=== PATIENT | male | born 1940 | race Caucasian/White ===

== ENCOUNTER → 2020-02-25 | Outpatient (CLI) | payer MEDICARE, OTHER ==
[~2020-02-25] MED LIST: AMLO1TAB24 PO; ATOR40TA75 PO; CHLO25TA PO; ENAL20TA11 PO; FINA5TAB2 PO; MULTCAP PO
== END ==
LOC: M LABSMTC 08:50
PROVIDERS: ATTEND Anesthesiology
DX: Z01.812 Encounter for preprocedural laboratory examination (principal); Z20.828 Contact with and (suspected) exposure to other viral communicable diseases
CPT/HCPCS: C9803; U0003

== ENCOUNTER 2020-03-01 09:45 | Day surgery (SDC) | payer MEDICARE, OTHER ==
[~2020-03-01] VITALS: Ht 180.3 cm; Wt 78.5 kg
[~2020-03-01 09:45] MED LIST changes: +LR 1,000 ML IV ONE; +ceFAZolin SOD 2 GM in IV 1 EA IV ONE
[2020-03-01] MEDS ORDERED: dexameTHASONE 4 MG/ML 1ML VIAL (J1100 PER 1MG) As Ordered ONE (12:10)
[2020-03-01] MEDS ORDERED: LIDOCAINE 2% MDV 20ML VIAL As Ordered ONE (12:10)
[2020-03-01] MEDS ORDERED: propofoL 500 MG/50 ML VIAL As Ordered ONE (12:10)
[2020-03-01] MEDS ORDERED: BUPIVACAINE HCL 0.5% 10ML VIAL As Ordered ONE (12:10)
[2020-03-01] MEDS ORDERED: BACITRACIN PWD 50,000 UNITS VIAL As Ordered ONE (12:11)
[2020-03-01] MEDS ORDERED: NEOSPORIN GU IRRIG 20 ML VIAL As Ordered ONE (12:11)
[2020-03-01] MEDS ORDERED: LIDOCAINE 2% 100MG/5ML SDV (FOR ANES.) As Ordered ONE (12:12)
[2020-03-01] MEDS ORDERED: fentaNYL 100 MCG/2 ML INJECTION (J3010) As Ordered ONE (13:42)
[2020-03-01] MEDS ORDERED: propofoL 200 MG/20 ML VIAL As Ordered ONE ×2 (13:57→14:31)
[2020-03-01 16:35] VITALS: BP 157/75
--- NOTE | 2020-03-07 11:06 | REP ---
RIGHT FOOT SERIES: PORTABLE EXAM 3-VIEWS HISTORY: Postop. FINDINGS: Three views of the right foot demonstrate pins transfixing the interphalangeal (IP) joints of the second, third, and fourth digits with distal osteotomies to the proximal phalanges of the second, third, fourth, and fifth digits. Bunion repair is seen with a single pin in place in the distal end of the first metatarsal. Mild hallux valgus. There is Achilles and plantar calcaneal spurring noted as well. MTDD
--- NOTE | 2020-03-08 13:03 | RO ---
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 SURGEON: Chaim Sun DPM [employer] MANAGER: None. ANESTHESIA: Local MAC. IRRIGATION: Dilute Bacitracin, Neomycin and Polymyxin B solution. HARDWARE UTILIZED: Arthrex Headless 3.0 x 28 mm cannulated compression screw and external wires 0.045 x3. HEMOSTASIS: Ankle pneumatic tourniquet at 225 mmHg for 100 minutes. DESCRIPTION OF OPERATON: On 03/01/2020 this 79-year-old white male was taken from his hospital room to the operating room and placed on the operating table in the supine position. Following induction of IV sedation and local regional anesthesia right lower extremity was prepped and draped in usual aseptic manner. Attention was directed to the patients right foot. There was noted to be a severe hallux valgus deformity of the right foot. At this time a 6 cm incision was placed over the 1st metatarsophalangeal joint. The incision was deepened through subcutaneous tissues and all crossing venous tributaries were identified, underscored, clamped, cut, ligated, and electrocoagulated as necessary. Linear capsulotomy was performed in the same plane of original skin incision. Capsular and periosteal structures were then dissected free in one continuous layer dorsal, medial and lateral, thus creating a capsular and periosteal type envelope. This brought into view the hypertrophied medial eminence of the 1st metatarsal which was osteotomized from distal to proximal [id number] exiting medial to the sesamoidal groove. Attention was then directed to the 1st intermetatarsal space where dissection was carried down to the level of the fibular sesamoid which was then released including the sesamophalangeal and metatarsal sesamoidal ligament and the suspensory ligament. However, the sesamoid would not slide under the head of the 1st metatarsal, therefore the sesamoid was removed. The wound was flushed with copious amounts of Bacitracin, Neomycin and Polymyxin based solution. Attention was directed to the medial surface of the 1st metatarsal where V-shaped osteectomy was performed with long plantar and short dorsal angle. By creation of this osteotomy capital fragment was transposed approximately 40% of shaft of 1st metatarsal and fixated with 3.0 x 28 mm compression screw. The osteotomy was noted to be stable in all three cardinal planes. The screw did not penetrate the inferior cartilage under direct visualization. Redundant cortical spike was then osteotomized from dorsal to plantar [id number]. The wound was flushed with copious amounts of Bacitracin, Neomycin and Polymyxin B solution. Capsular structures were coapted and maintained utilizing 2-0 Monocryl in simple interrupted type fashion. Subcutaneous tissues were coapted and maintained using 4-0 Monocryl in simple interrupted type fashion. Skin incision was coapted and maintained utilizing 4-0 nylon in simple interrupted and horizontal mattress type fashion. Attention was then directed to the patients 2nd toe and the following procedure was performed. Proximal interphalangeal joint arthroplasty with external wire fixation 0.045 x1 2nd toe right foot. Attention was directed to the patients 2 nd toe of the right foot. There was noted to be a hammertoe deformity present of the 2nd toe. An incision was made from the metatarsophalangeal joint to just distal to the proximal interphalangeal joint. The incision was deepened through subcutaneous tissues and all crossing venous tributaries were identified, underscored, clamped, cut, ligated, and electrocoagulated as necessary. Attention was directed to the extensor tendon which was elevated from the proximal phalanx. Z-plasty tenotomy was then performed to lengthen the extensor tendon. The extensor expansion and street was then released proximally. Utilizing power saw an osteotomy was performed at the level of the anatomical neck of the proximal phalanx from dorsal to plantar [id number], caudal edge at the base of the middle phalanx was then osteotomized __ and extricated from the wound. A wire was driven through the middle and distal phalanx and retrograded into the proximal phalanx. There was still an extensive contraction noted of the 2nd toe, therefore the following procedure was performed: 2nd metatarsophalangeal joint capsulotomy with release of the plantar plate. The incision was then lengthened proximally, approximately 1 cm. Transverse tenotomy and capsulotomy was performed at the level of the metatarsophalangeal joint. Utilizing metatarsal elevator the plantar plate was released. Attention was directed toward closure where the extensor tendon was coapted and maintained utilizing 4-0 braided nylon suture with four-stranded core repair in Olivier fashion. Subcutaneous tissues were coapted and maintained utilizing 4-0 Monocryl in simple interrupted type fashion. Skin incision was coapted and maintained using 4-0 nylon in simple interrupted and horizontal mattress type fashion. Attention was then directed to the patients 3rd toe of the right foot where the following procedure was performed: Proximal interphalangeal joint arthroplasty with external wire fixation with 0.045 x1 right foot. Attention was directed to the patients 3rd toe and procedure performed on the 2nd toe was now performed on the 3rd toe with the following variations: The distal interphalangeal joint was noted to be severely contracted. Therefore the following procedure was performed: Distal interphalangeal joint arthroplasty. Attention was directed to the distal aspect of the 2nd toe where two transverse semi-elliptical incisions were placed at the distal interphalangeal joint. Transverse tenotomy and capsulotomy were performed at the level of the distal interphalangeal joint. The medial and lateral collateral ligaments were dissected free from the head of the middle phalanx, delivering into view the head of the middle phalanx. Utilizing a power saw an osteotomy was performed through the neck of the middle phalanx from dorsal to plantar and [id number] and this was removed. Wire was then driven and retrograded through the distal phalanx and then into the middle and proximal phalanx. No other variations or deletions were noted. Attention was then directed to the 3rd metatarsophalangeal joint where the following procedure was performed: Capsulotomy 3rd metatarsophalangeal joint right foot. Attention was directed to the patients 3rd metatarsophalangeal joint where the procedure performed on 2nd metatarsophalangeal joint was now performed on 3rd metatarsophalangeal joint without variations or deletions, the only exception being that of anatomical location. Attention was then directed to the patients 4th toe of the right foot where the following procedure was performed: Proximal interphalangeal joint arthroplasty with external wire fixation 0.045 x1 4th toe right foot. Attention was directed to the patients 4th toe on the right foot where procedure performed on the 2nd toe was now performed on 4th toe without variations, or deletions, the only exception being that of anatomical location. Attention was then directed to the patients 4th metatarsophalangeal joint where the following procedure was performed: Dorsal capsulotomy with release of plantar plate 4th metatarsophalangeal joint right foot. Attention was directed to the base of the 4th metatarsophalangeal joint where the procedure performed on the 2nd metatarsophalangeal joint was no w performed on the 4th metatarsophalangeal joint without variation, deletion, the only exception being that of anatomical location. Attention was then directed to the patients 5th toe where the following procedure was performed: Proximal interphalangeal joint arthroplasty 5th toe right foot. Attention was directed to the patients 5th toe of right foot where the procedure performed on the 2nd toe was now performed on the 5th toe with the following variations: The cartilage was not removed from the base of the middle phalanx of the 5th toe and external wire was not used to stabilize the 5th toe. There was no other variation or deletion. Attention was then directed to the patients 5th metatarsophalangeal joint where the following procedure was performed: 5th metatarsophalangeal joint capsulotomy right foot. Attention was directed to the patients 5th metatarsophalangeal joint where the procedure performed on the 2nd metatarsophalangeal joint was now performed on the 5th metatarsophalangeal joint without variation or deletion, the only exception being that of anatomical location. Following the completion of the surgical procedure approximately 4 mg of Dexamethasone Sodium Phosphate was instilled proximal to the surgical site. Attention was directed towards bandaging and sterile compression bandage was applied consisting Adaptic, 4 x 4s, 4 x 4 splints, Danette, Kerlix and Coban. The ankle pneumatic tourniquet was rapidly deflated and instantaneous capillary filling time was noted to digits 1-5 of the patient's right foot. The patient appeared to have tolerated the procedure well and was taken from the OR to the recovery room with vital signs stable, for further management by the anesthesia department. Postop instructions were given upon discharge. YASMIN
== END 2020-03-01 16:35 | disposition home or self-care (01) ==
LOC: M SDC 09:45
PROVIDERS: ATTEND Podiatrist
DX: M20.31 Hallux varus (acquired), right foot (principal); M20.41 Other hammer toe(s) (acquired), right foot; I10 Essential (primary) hypertension; E78.5 Hyperlipidemia, unspecified; Z79.899 Other long term (current) drug therapy
CPT/HCPCS: 28270; 28285; 28296; 73630; 88300; C1713; J0690; J1100; J3010

== ENCOUNTER → 2020-03-27 | Outpatient (REF) | payer MEDICARE, OTHER ==
[~2020-03-27] MED LIST changes: -LR 1,000 ML IV ONE; -ceFAZolin SOD 2 GM in IV 1 EA IV ONE
== END ==
LOC: M LAB REF 17:22
PROVIDERS: ATTEND Physician Assistant
DX: R23.8 Other skin changes (principal)
CPT/HCPCS: 11102; 17000; 17003; 88305; G0463

== ENCOUNTER → 2021-04-02 | Outpatient (REF) | payer MEDICARE, OTHER | LOC: M LAB REF 14:09 | PROVIDERS: ATTEND Physician Assistant | DX: L57.0 Actinic keratosis (principal); L57.8 Other skin changes due to chronic exposure to nonionizing radiation | CPT/HCPCS: 11102; 17000; 17003; 88305; G0463 ==

== ENCOUNTER → 2022-04-15 | Outpatient (REF) | payer MEDICARE, OTHER | LOC: M SFHCDERM 08:59 | PROVIDERS: ATTEND Physician Assistant | DX: C44.320 Squamous cell carcinoma of skin of unspecified parts of face (principal) ==

== ENCOUNTER → 2024-01-27 | Outpatient (REF) | payer MEDICARE, OTHER ==
[~2024-01-27] MED LIST changes: +ENAL1TAB52 PO; -ENAL20TA11 PO
== END ==
LOC: M SFHCDERM 15:52
PROVIDERS: ATTEND Physician Assistant
DX: C44.41 Basal cell carcinoma of skin of scalp and neck (principal)

== ENCOUNTER → 2024-09-11 | Outpatient (REF) | payer MEDICARE, OTHER | LOC: M LAB REF 17:51 | PROVIDERS: ATTEND Physician Assistant | DX: D48.9 Neoplasm of uncertain behavior, unspecified (principal); C44.311 Basal cell carcinoma of skin of nose ==